=== PATIENT | female | born 1985 | race African-American/Black ===

== ENCOUNTER 2019-03-23 13:59 | Emergency (ER) | payer OTHER ==
[2019-03-23 14:07] VITALS: BP 134/83; PULSE 83; TEMP 97.8; BMI 25.7
[2019-03-23] MEDS ORDERED: LIDOCAINE 5% TOPICAL PATCH TP ONE (14:13)
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
== END 2019-03-23 15:34 | disposition home or self-care (01) ==
LOC: JERFT 13:59
DX: R25.2 Cramp and spasm (principal); Z04.1 Encounter for examination and observation following transport accident; V43.92XA Unspecified car occupant injured in collision with other type car in traffic accident, initial encounter; Y93.89 Activity, other specified; Y92.410 Unspecified street and highway as the place of occurrence of the external cause; F17.210 Nicotine dependence, cigarettes, uncomplicated; Z88.8 Allergy status to other drugs, medicaments and biological substances
CPT/HCPCS: 99281-25

== ENCOUNTER 2019-05-04 08:06 | Emergency (ER) | payer SELFPAY ==
[2019-05-04 08:09] VITALS: BMI 26.6
[2019-05-04 09:13] LABS: BASO % 1.1 % (0-2.0); EOS % 12.9 % (0-4.5); HEMOGLOBIN 10.3 GM/dL (10.7-15.3); MCH 23.6 pg (25.7-33.7); MCHC 31.2 g/dl (32.0-36.0); MEAN CELL VOLUME 75.5 fl (80-96); MEAN PLT VOLUME 7.7 fl (7.5-11.1); MONO % 8.5 % (3.8-10.2); NEUT % 49.5 % (42.8-82.8); PLATELET COUNT 231 K/MM3 (134-434); RBC 4.37 M/mm3 (3.60-5.2); RDW 19.8 % (11.6-15.6); WHITE BLOOD COUNT 6.8 K/mm3 (4.0-10.0)
[2019-05-04 09:35] LABS: ALBUMIN 3.4 g/dl (3.4-5.0); BILIRUBIN,TOTAL 0.2 mg/dL (0.2-1); CALCIUM 8.3 mg/dL (8.5-10.1); CREATININE 0.8 mg/dL (0.55-1.3); TOT PROT 6.8 g/dl (6.4-8.2)
--- NOTE | 2019-05-04 10:15 | PDOC ---
Documentation entered by Jody Diaz SCRIBE, acting as scribe for Misael Cuevas MD. Misael Cuevas MD: This documentation has been prepared by the Emily parham Nirvannie, SCRIBE, under my direction and personally reviewed by me in its entirety. I confirm that the documentation accurately reflects all work, treatment, procedures, and medical decision making performed by me. History of Present Illness - General Chief Complaint: Lightheaded Stated Complaint: DIZZINESS Time Seen by Provider: 05/04/19 08:08 History Source: Patient Exam Limitations: No Limitations - History of Present Illness Initial Comments: 05/04/19 08:35 The patient is a 33 year old female, with a significant past medical history of anemia, who presents to the emergency department s/p episode of transient lightheadedness and elevated blood pressure. 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 She reports having to sit immediately and had her blood pressure checked at which time it was noted to be 155/106, prompting her arrival to the Emergency Department. She notes previous episodes of lightheadedness which normally resolves on its own, different from todays episode. While in the Emergency Department, patient notes to be asymptomatic. Patient had a recent physical exam with her primary care physician which she notes it was within normal limits. She denies any history of hypertension. She denies any family history of hypertension diagnosed at an early age. She denies any head/neck trauma. She denies any focal changes in strength/sensation. She denies recent chest pain or shortness of breath. Allergies: NSAID Past surgical history: None reported. Social history: Smoker (2 cigarettes/day). Denies EtOH use and recreational drug use. Primary Care Physician: [place]. LMP: March. Past History - Past Medical History Allergies/Adverse Reactions: Allergies Allergy/AdvReac Type Severity Reaction Status Date / Time NSAIDS (Non-Steroidal Allergy Verified 05/04/19 08:08 Anti-Inflamma Home Medications: Ambulatory Orders Cyclobenzaprine HCl 5 mg PO HS #10 tablet 03/23/19 Lidocaine [Lidocaine Pain Relief] 1 each TP DAILY #3 adh..patch 03/23/19 COPD: No - Psycho Social/Smoking Cessation Hx Smoking History: Never smoked Number of Cigarettes Smoked Daily: 0 Hx Alcohol Use: Yes (OCCASIONALLY) Drug/Substance Use Hx: No Review of Systems - Review of Systems Able to Perform ROS?: Yes Comments:: 05/04/19 08:36 CONSTITUTIONAL: +Transient elevated blood pressure. No fever, no chills, no fatigue EYES: No visual changes ENT: No ear pain, no sore throat CARDIOVASCULAR: No chest pain, no palpitations RESPIRATORY: No cough, no SOB GI: No abdominal pain, no nausea, no vomiting, no constipation, no diarrhea GENITOURINARY: No dysuria, no frequency, no hematuria MUSKULOSKELETAL: No back pain, no joint pain, no myalgias SKIN: No rash NEURO: +Transient lightheadedness. No headache *Physical Exam - Vital Signs Last Vital Signs Temp Pulse Resp BP Pulse Ox 98.6 F 91 H 16 144/99 100 05/04/19 08:07 05/04/19 08:07 05/04/19 08:07 05/04/19 08:07 05/04/19 08:07 - Physical Exam Comments: 05/04/19 08:37 CONSTITUTIONAL: Well-appearing; well-nourished; in no apparent distress HEAD: Normocephalic; atraumatic EYES: PERRL; EOM intact ENMT: External appears normal; normal oropharynx NECK: Supple; non-tender; no cervical lymphadenopathy CARD: Normal S1, S2; no murmurs, rubs, or gallops RESP: Normal chest excursion with respiration; breath sounds clear and equal bilaterally; no wheezes, rhonchi, or rales ABD: Soft, non-distended; non-tender; no palpable organomegaly, no palpable hernias EXT: Normal ROM in all four extremities; non-tender to palpation; distal pulses intact SKIN: Warm, dry, no rash NEURO: No focal neurological deficiencies. Heart Score/ECG Review - ECG Intrepretation Comment:: 05/04/19 08:41 EKG performed at: 04 May 2019 at 8:34:49 Vent Rate: 84bpm DC interval: 166 ms QRS duration: 86 ms QT/QTc: 388/458 ms P-R-T axes: 66 23 18 Normal sinus rhythm. Possible left atrial enlargement. Nonspecific T-wave abnormality. Abnormal ECG. ED Treatment Course - LABORATORY CBC & Chemistry Diagram: 05/04/19 08:50 05/04/19 08:50 - ADDITIONAL ORDERS Additional order review: Laboratory Results 05/04/19 05/04/19 08:50 08:50 Sodium 136 Potassium 4.0 Chloride 106 Carbon Dioxide 25 Anion Gap 6 L BUN 12.0 Creatinine 0.8 Est GFR (CKD-EPI)AfAm 111.48 Est GFR (CKD-EPI)NonAf 96.19 Random Glucose 98 Calcium 8.3 L Total Bilirubin 0.2 AST 21 ALT 20 Alkaline Phosphatase 81 Total Protein 6.8 Albumin 3.4 TSH 1.56 05/04/19 08:50 RBC 4.37 MCV 75.5 L MCHC 31.2 L RDW 19.8 H MPV 7.7 Neutrophils % 49.5 Lymphocytes % 28.0 Monocytes % 8.5 Eosinophils % 12.9 H Basophils % 1.1 Medical Decision Making - Medical Decision Making 05/04/19 Patient reassessed at 09:02 Repeat Blood Pressure: 131/84 mm/Hg 05/04/19 10:14 Patient is a well-appearing 33-year-old female who presents to the ER with episodic lightheadedness and dizziness which has now resolved. Patient also endorses associated palpitations at the time of onset. Patient denies chest pain or shortness of breath. Patient reported previous history of similar symptoms. Patient was noted to be hypertensive and referred to the ER. In the ER, patient is awake and alert, asymptomatic, resting comfortably with improving blood pressure without intervention. EKG reveals no evidence of acute ischemia or dysrhythmia. CBC/CMP/TSH are within normal limit. Serial neuro exams revealed no focal deficits. I do not suspect cardiogenic near syncope at this time. Pending serum , patient will be discharged home with outpatient follow-up. 05/04/19 10:59 Patient resting comfortably. Patient's blood pressure improved without acute interventions in the ED. CBC reveals iron deficiency anemia which the patient is aware of./CMP/TSH are within normal limit. I do not suspect an arrhythmia at this time. Will discharge with follow-up. Discharge - Discharge Information Problems reviewed: Yes Clinical Impression/Diagnosis: Near syncope, Dizziness Condition: Stable Disposition: HOME - Follow up/Referral Referrals: Terry Menjivar MD [Staff Physician] - - Patient Discharge Instructions Patient Printed Discharge Instructions: DI for High Blood Pressure, DI for Dizziness-Nonvertigo - Post Discharge Activity Work/Back to School Note: Back to Work
[2019-05-04 10:57] LABS: PH,URINE 8.5 (5.0-8.0); URINE APPEARANCE CLOUDY; URINE BILIRUBIN NEGATIVE (NEGATIVE); URINE COLOR YELLOW; URINE GLUCOSE (UA) NEGATIVE (NEGATIVE); URINE KETONE NEGATIVE (NEGATIVE); URINE LEUK ESTERASE NEGATIVE (NEGATIVE); URINE NITRITE NEGATIVE (NEGATIVE); URINE PROTEIN NEGATIVE (NEGATIVE); URINE UROBILINOGEN 0.2 mg/dL (0.2-1.0)
[2019-05-04 11:22] VITALS: BP 131/88; PULSE 70; TEMP 98.4
--- NOTE | 2019-05-04 12:46 | EKG ---
Test Reason : Blood Pressure : / mmHG Vent. Rate : 084 BPM Atrial Rate : 084 BPM P-R Int : 166 ms QRS Dur : 086 ms QT Int : 388 ms P-R-T Axes : 066 023 018 degrees QTc Int : 458 ms NORMAL SINUS RHYTHM POSSIBLE LEFT ATRIAL ENLARGEMENT NONSPECIFIC T WAVE ABNORMALITY ABNORMAL ECG NO PREVIOUS ECGS AVAILABLE Confirmed by LAURENCE STOVALL MD ([id number]) on 05/04/2019 12:46:12 PM Referred By: Confirmed By:LAURENCE STOVALL MD
== END 2019-05-04 11:24 | disposition home or self-care (01) ==
LOC: JER 08:06
DX: R55 Syncope and collapse (principal); R42 Dizziness and giddiness; Z88.8 Allergy status to other drugs, medicaments and biological substances; D64.9 Anemia, unspecified
CPT/HCPCS: 36415; 80053; 81003; 84443; 84703; 85025; 93005; 93010; 99284-25

== ENCOUNTER 2019-07-08 07:39 | Emergency (ER) | payer OTHER ==
--- NOTE | 2019-07-08 07:53 | PDOC ---
History of Present Illness - General Chief Complaint: Injury Stated Complaint: FALL Time Seen by Provider: 07/08/19 07:46 History Source: Patient Exam Limitations: No Limitations - History of Present Illness Initial Comments: 07/08/19 08:00 HPI: 34yo F PMH anemia, presenting 1 day s/p fall. Reports mechanical fall while taking out her trash, unclear mechanism, injured her right leg, denies head trauma or LOC. Endorses severe pain with active ROM of the knee and was initially weight bearing but experienced worsening pain this AM. Denies any prodromal symptoms, lightheadedness, dizziness, gait changes, numbness, weakness , tingling, chest pain, back pain. Only complaint since has been pain to the area with swelling and stiffness. Does not remember if she twisted it or heard / felt a POP. All: NSAIDs Meds: Per chart PMH: Anemia PSH: Denies Past History - Past Medical History Allergies/Adverse Reactions: Allergies Allergy/AdvReac Type Severity Reaction Status Date / Time NSAIDS (Non-Steroidal Allergy Verified 07/08/19 07:41 Anti-Inflamma Home Medications: Ambulatory Orders Ergocalciferol (Vitamin D2) [Vitamin D2] 1 tab PO WEEKLY 07/08/19 COPD: No - Immunization History Immunization Up to Date: Yes - Psycho Social/Smoking Cessation Hx Smoking History: Current every day smoker Number of Cigarettes Smoked Daily: 0 Information on smoking cessation initiated: No Hx Alcohol Use: No Drug/Substance Use Hx: No Review of Systems - Review of Systems Able to Perform ROS?: Yes Is the patient limited Greek proficient: Yes Constitutional: No: Chills, Fever HEENTM: No: Nose Congestion, Throat Pain Respiratory: No: Cough, Shortness of Breath Cardiac (ROS): No: Chest Pain, Lightheadedness, Palpitations, Syncope ABD/GI: No: Constipated, Diarrhea, Nausea, Vomiting : No: Burning, Dysuria, Frequency Musculoskeletal: Yes: See HPI, Joint Pain, Joint Swelling, Muscle Pain, Joint Stiffness. No: Muscle Weakness Integumentary: No: Bruising, Rash Neurological: No: Headache, Numbness, Tingling, Weakness, Unsteady Gait Hematologic/Lymphatic: Yes: Anemia All Other Systems: Reviewed and Negative *Physical Exam - Vital Signs Last Vital Signs Temp Pulse Resp BP Pulse Ox 98.0 F 83 20 136/91 100 07/08/19 07:43 07/08/19 07:43 07/08/19 07:43 07/08/19 07:43 07/08/19 07:43 - Physical Exam 07/08/19 08:06 Vitals reviewed, AFVSS GEN: Well appearing, appears stated age, NAD, comfortable. In wheelchair. AAOx3. HEENT: NCAT, EOMI. No facial asymmetry. Moist mucous membranes. Normal voice. Trachea midline. CV: No central cyanosis, good cap refill, no pallor. LUNG: Normal work of breathing. No cough. Speaking full sentences. GI: Deferred EXTREMITIES: 2+ distal pulses. No LE edema. No obvious deformities of all extremities. Small (<0.5cm) abrasions inferior to the patella with effusion. No ecchymosis. Tender to palpation medially, no laxity with lateral/medial pressure. SKIN: Warm, dry, non-jaundiced. PSYCH: Normal mood and affect. Cooperative and appropriate. NEURO: CN grossly intact. Moving all extremities well. Normal sensation of light tough symmetric in bilateral extremities. Medical Decision Making - Medical Decision Making 07/08/19 08:08 34yo F presenting s/p mechanical fall with R knee injury. Pain with active ROM, medial tenderness / swelling c/w meniscal injury. Joint appears stable and patient's LE remains neurovascularly intact. - Xray L Knee - Ortho f/u - Bacitracin 07/08/19 08:29 - Splint, crutches Dispo: Home Discharge - Discharge Information Problems reviewed: Yes Clinical Impression/Diagnosis: Knee pain, right Qualifiers: Chronicity: acute Qualified Code(s): M25.561 - Pain in right knee Condition: Stable Disposition: HOME - Admission No - Follow up/Referral Referrals: Inocente Talavera MD [Staff Physician] - - Patient Discharge Instructions Additional Instructions: You were evaluated in the Emergency Department. Continue your home medications as prescribed. Take Tylenol for pain as directed by the label. Additionally, use the RICE method to help alleviate the pain: - Rest - Ice - Compress (warm/cold compresses) - Elevate the affected area Follow up with Orthopedic Surgery in the next week if symptoms persist. We are referring you to Dr. Talavera/Dr. Walker, you may call and schedule an appointment at the number provided. Follow up with your primary care doctor regarding this visit in the next 3-5 days. Immediately return to the nearest Emergency Department if you experience worsening symptoms or if you develop new or concerning symptoms. - Post Discharge Activity Work/Back to School Note: Back to Work
[2019-07-08 08:19] VITALS: BP 136/91; PULSE 83; TEMP 98; BMI 25.7
[2019-07-08] MEDS ORDERED: BACITRACIN 15 GM TUBE TOPICAL OINTMENT TP ONE (08:22)
--- NOTE | 2019-07-08 08:26 | PDOC ---
Attending Attestation - Resident Resident Name: Vladimir Lopez - ED Attending Attestation I have performed the following: I have examined & evaluated the patient, The case was reviewed & discussed with the resident, I agree w/resident's findings & plan, Exceptions are as noted - HPI HPI: 07/08/19 14:53 34 years old status post mechanical fall with right knee injury able to ambulate yesterday worsening pain today moderate persistent constant worse with ambulation. - Physicial Exam PE: 07/08/19 14:53 Vitals: Triage Vital signs reviewed General Appearance: No acute distress, well nourished well developed, Head: Atraumatic, Extremities: Full range of motion to all extremities, abrasion to right knee full range of motion tenderness palpation over the patella flexor mechanism intact Neuro: Strength intact to all extremities, sensation intact to all extremities Psych: Normal mood, normal affect - Medical Decision Making 07/08/19 14:54 Well-appearing no apparent distress mechanical trip and fall abrasion to knee tetanus up-to-date no acute fracture dislocation on x-ray. We will recommend rest ice conservative measurement orthopedic follow-up if no improvement Findings, need for follow-up and strict return instructions discussed with patient. Discharge - Discharge Information Problems reviewed: Yes Clinical Impression/Diagnosis: Knee pain, right Qualifiers: Chronicity: acute Qualified Code(s): M25.561 - Pain in right knee Condition: Stable Disposition: HOME - Admission No - Follow up/Referral Referrals: Inocente Talavera MD [Staff Physician] - - Patient Discharge Instructions Patient Printed Discharge Instructions: DI for Knee Pain Additional Instructions: You were evaluated in the Emergency Department. Continue your home medications as prescribed. Take Tylenol for pain as directed by the label. Additionally, use the RICE method to help alleviate the pain: - Rest - Ice - Compress (warm/cold compresses) - Elevate the affected area Follow up with Orthopedic Surgery in the next week if symptoms persist. We are referring you to Dr. Talavera/Dr. Walker, you may call and schedule an appointment at the number provided. Follow up with your primary care doctor regarding this visit in the next 3-5 days. Immediately return to the nearest Emergency Department if you experience worsening symptoms or if you develop new or concerning symptoms. - Post Discharge Activity Work/Back to School Note: Back to Work
== END 2019-07-08 08:44 | disposition home or self-care (01) ==
LOC: JER 07:39
DX: M25.561 Pain in right knee (principal); Z88.8 Allergy status to other drugs, medicaments and biological substances; F17.210 Nicotine dependence, cigarettes, uncomplicated; W18.39XA Other fall on same level, initial encounter; Y93.89 Activity, other specified; Y92.89 Other specified places as the place of occurrence of the external cause
CPT/HCPCS: 73564-TC-RT-FY; 99281-25